=== PATIENT | male | born 1990 | race Caucasian/White ===

== ENCOUNTER → 2021-03-13 14:42 | Outpatient (BNVA) | payer SELFPAY | PROVIDERS: Family Provider Nurse Practitioner Family; PCP Nurse Practitioner Family; Visit Provider Nurse Practitioner Family | DX: R07.9 Chest pain, unspecified (principal) | CPT/HCPCS: 80053; 80061; 83735; 84443; 84484; 85025 ==

== ENCOUNTER → 2021-09-16 13:03 | Outpatient (BNVA) | payer SELFPAY | PROVIDERS: Family Provider Nurse Practitioner Family; PCP Nurse Practitioner Family; Visit Provider Nurse Practitioner Family | DX: Z11.52 Encounter for screening for COVID-19 (principal) | CPT/HCPCS: 87635 ==

== ENCOUNTER 2021-10-19 12:08 | Emergency (ER) | payer SELFPAY ==
[2021-10-19 12:16] VITALS: BP 148/86; PULSE 82; RESP 18; TEMP 36.8; O2SAT 98; BMI 28.3
--- NOTE | 2021-10-19 12:23 | W.ED.CHESTPA ---
HPI - Chest Pain General: Chief Complaint: Chest Pain Stated Complaint: Chest Pain and tightness Time Seen by Provider: 10/19/21 12:23 History of Present Illness: Mr. Kumari is a 30-year-old gentleman who presents emergency department due to chest discomfort and shortness of breath. He does endorse a history of anxiety and is not currently on medications, previously tried Lexapro though had zombie feeling and therefore stopped taking it. He was doing okay managing without medication however after developing Covid approximately 1 month ago he has had increased anxiety. He describes pressure that extends from his throat down to his chest that occurs intermittently. This is often associated with racing heart, panic feeling, and shortness of breath. He cannot think of specific situations that provoke this and it occurs randomly sometimes multiple times per day. He does have a history of tobaccoism but no other cardiac risk factors. He previously saw kitchen operator and was referred for further outpatient stress test however this has not been scheduled. Overall intensity symptoms when present is moderate to severe. Course is intermittent. He reports frequent upset stomach which she thinks may be related to anxiety as well. No other specific changes in health, exacerbating, relieving factors identified. Onset (ago): month(s) Timing of current episode: episodic Prior episodes: Yes Onset: other Pain location: other Severity: moderate Quality: tightness Relieving factors: nothing Exacerbating factors: nothing Treatment prior to arrival: other Review of Systems General: Reports: 10 or more systems reviewed and unremarkable except in HPI and below PFSH ED PFSH: Surgical History No history of previous surgery Family History Other CAD (coronary artery disease) Cancer Clotting disorder Diabetes Hypertension Stroke Denies family history of Dementia Chronic kidney disease (CKD) Social History Smoking and tobacco status: former smoker Quit status (tobacco): has quit using tobacco Year quit tobacco: quit one month ago Second hand smoke exposure: No Smoking risk assessment/counseling performed?: No Alcohol intake: current Alcohol intake frequency: holidays/special occasions only Desire information about alcohol rehabilitation?: No Counseling given: No Desire information about substance/drug rehabilitation?: No Counseling given: No Adopted: No Caregiver/support person: No Lives independently: Yes Household members: family Housing: House Marital status: Number of children: 3 service: No Current occupational status: employed Current occupation: [employer] History of recent travel: No Current gender identity: Male Physical Exam Const: COMMON NORMALS: alert GENERAL APPEARANCE: cooperative and well developed HENMT: COMMON NORMALS: normocephalic and atraumatic HEAD & SCALP: normocephalic and atraumatic Eye: COMMON NORMALS: conjunctivae normal CONJUNCTIVA: Yes conjunctivae normal SCLERA: sclerae normal Neck/C-Spine: COMMON NORMALS: supple GENERAL: Yes trachea midline Resp: COMMON NORMALS: normal respiratory effort and clear to auscultation bilaterally EFFORT & INSPECTION: Yes able to speak in complete sentences AUSCULTATION: clear to auscultation bilaterally Cardio: COMMON NORMALS: regular rate and regular rhythm RATE: regular rate RHYTHM: regular rhythm GI: COMMON NORMALS: Soft to palpation PALPATION: Yes Soft to palpation and No Tenderness to palpation present (GI) PERCUSSION: normal to percussion Extremity: GENERAL: Yes normal exam except as noted and No edema Neuro: COMMON NORMALS: moves all extremities SENSORIUM/ORIENTATION: Yes alert and No Orientation impaired Psych: COMMON NORMALS: mental status grossly normal and Normal thought process present THOUGHT PROCESS: Normal thought process present Course ED course: - Patient was seen and evaluated by me at bedside - Patient placed on cardiac monitors, IV access obtained - Initial evaluation notable for exam as above - Labs notable for minimal leukocytosis, likely mild hemoconcentration. Troponin is normal with greater than 6 hours of symptoms. - Imaging notable for no acute finding on chest x-ray. - Upon serial reexamination after treatment the patient was similar - Based on patient history, evaluation, labs, and imaging as interpreted the most likely cause of the patient's condition is multifactorial including unspecified chest pain. - The results of ED evaluation were discussed with the patient including prescriptions and/or symptomatic cares (if applicable) including appropriate and responsible use, followup plan, and return precautions. The patient verbalized understanding and felt safe for discharge. - Patient discharged in satisfactory condition. Note: Click bubbles or prepopulated osei in note writing are used for assistance with data collection and billing and are inherently more limited than narrative and other text portions of this note. Please use narrative for additional clinical history and defer to narrative/free test for any case of contradictory information. If information appears in only free text or click bubble it should be considered present or absent as reported. Please contact note publications writer for clarifications of clinical information or contradictory information. MDM is a brief summary, contradictory or erroneous seeming information should be clarified and full note should be reviewed. Vital Signs: Vital signs: Vital Signs Temperature 98.3 F 10/19/21 12:16 Pulse Rate 70 10/19/21 14:22 Respiratory Rate 17 10/19/21 14:22 Blood Pressure 133/73 10/19/21 14:22 Pulse Oximetry 96 10/19/21 14:22 MDM - Chest Pain Medical Decision Making 30-year-old gentleman presenting with shortness of breath and chest discomfort. Patient low risk by heart score and troponin negative greater than 6 hours of symptoms. Satisfactory for outpatient evaluation. Medical Records I reviewed the patient's medical records. Lab Data I reviewed the patient's lab results. : 10/19/21 12:48 10/19/21 12:48 Radiology Impressions Chest X-Ray 10/19/21 12:42 IMPRESSION: No acute findings. Laboratory Results WBC 10.3 10^3/uL (4.0-10.0) H 10/19/21 12:48 RBC 5.33 10^6/uL (4.1-5.3) H 10/19/21 12:48 Hgb 15.2 g/dL (11.7-16.6) 10/19/21 12:48 Hct 45.9 % (42.0-52.0) 10/19/21 12:48 MCV 86.1 fl (80-94) 10/19/21 12:48 MCH 28.5 pg (28.0-34.0) 10/19/21 12:48 MCHC 33.1 g/dL (30.0-36.0) 10/19/21 12:48 RDW 12.2 % (12.1-15.1) 10/19/21 12:48 Plt Count 302 10^3/cmm (130-400) 10/19/21 12:48 MPV 10.0 fL (7.4-10.4) 10/19/21 12:48 Neut % (Auto) 75.3 % 10/19/21 12:48 Lymph % (Auto) 18.0 % 10/19/21 12:48 Bowie % (Auto) 5.9 % 10/19/21 12:48 Eos % (Auto) 0.1 % 10/19/21 12:48 Baso % (Auto) 0.3 % 10/19/21 12:48 Neut # (Auto) 7.75 10^3/uL (1.8-7.7) H 10/19/21 12:48 Lymph # (Auto) 1.9 10^3/uL (0.8-4.8) 10/19/21 12:48 Bowie # (Auto) 0.6 10^3/uL (0.2-0.9) 10/19/21 12:48 Eos # (Auto) 0.0 10^3/uL (0.0-0.8) 10/19/21 12:48 Baso # (Auto) 0.0 10^3/uL (0.0-0.1) 10/19/21 12:48 Nucleated RBC % (auto) 0 % 10/19/21 12:48 Nucleated RBCs # 0.0 /100WBC 10/19/21 12:48 Sodium 138 mmol/L (136-145) 10/19/21 12:48 Potassium 4.1 mmol/L (3.5-5.1) 10/19/21 12:48 Chloride 101 mmol/L (98-107) 10/19/21 12:48 Carbon Dioxide 25 mmol/L (22-29) 10/19/21 12:48 Anion Gap 16.1 (5-19) 10/19/21 12:48 BUN 13 mg/dL (6-20) 10/19/21 12:48 Creatinine 0.8 mg/dL (0.7-1.2) 10/19/21 12:48 GFR Calculation 113.5 mL/min (90-130) 10/19/21 12:48 Glucose 122 mg/dL (65-115) H 10/19/21 12:48 Calculated Osmolality 287 mOsm/kg (285-295) 10/19/21 12:48 Calcium 9.5 mg/dL (8.5-10.5) 10/19/21 12:48 Total Bilirubin 0.5 mg/dL (0.15-1.2) 10/19/21 12:48 AST 20 U/L (0-40) 10/19/21 12:48 ALT 26 U/L (0-41) 10/19/21 12:48 Alkaline Phosphatase 89 IU/L (40-130) 10/19/21 12:48 Troponin T Gen 5 ng/L 7 ng/L (0-15) 10/19/21 12:48 Total Protein 8.2 g/dL (6.6-8.7) 10/19/21 12:48 Albumin 5.2 g/dL (3.5-5.2) 10/19/21 12:48 Globulin 3.0 g/dL (1.3-4.6) 10/19/21 12:48 EKG Data EKG 1: I personally reviewed and interpreted this EKG as follows: EKG interpretation date: 10/19/21 EKG interpretation time: 12:42 Interpretation: Twelve-lead EKG shows a regular rhythm and rate of 79. FL interval 125, QRS duration 99, QTc 397. Right axis. Interpretation: Sinus rhythm. Nonspecific ST segment abnormalities. Discharge Plan Discharge Patient Disposition: Home Clinical Impression: Chest pain, Anxiety, Shortness of breath Condition: Stable Prescriptions: No Action clonazepam [Klonopin] 0.5 mg tablet 0.5 mg PO BID 30 Days Qty: 60 0RF escitalopram oxalate [Lexapro] 10 mg tablet 10 mg PO DAILY Qty: 30 6RF esomeprazole magnesium [Nexium] 20 mg capsule,delayed release(DR/EC) 20 mg PO DAILY 90 Days Qty: 90 2RF melatonin 5 mg capsule 5 mg PO DAILY PRN (Reason: insomnia) 10 Days Qty: 10 0RF Discharge Orders: Discharge ED (Routine); Ordered 10/19/21 Ordered By: Levi Clemons Referrals: Mary Rivas MD [Primary Care Provider] - Patient Instructions: Chest Pain (ED), Panic Disorder (ED), Anxiety (ED), Shortness of Breath (ED) Activity Restrictions/Additional Instructions: Thank you for visiting the emergency department. You were seen and evaluated for chest pain and shortness of breath episodes associated with other symptoms. The exact cause of your symptoms is unclear though based on description may be related to anxiety or panic disorder. I recommend continuing with your previously advised outpatient cardiac evaluation. I will message our senior case manager for further assistance regarding scheduling these tests. Please follow-up with your primary care provider. You may also access our behavioral health clinic at : [phone] [address] If you or someone you care for is experiencing a psychiatric emergency, please call the crisis hotline ([employer]) 24-hours a day, 7 days a week at [phone]. Please return to the emergency department for anything that you are concerned about and feel needs emergency department evaluation. Coding Level of Care Code ED Director Of Physical Education for Paul Fwd Exam Comprehensive
--- NOTE | 2021-10-19 12:42 | ECG_ITS ---
[facility] Test Date: 2021-10-19 Pat Name: Bruce Kumari Department: Room: Gender: Male Aquatics Lifeguard: : 1990 Requested By: Levi Clemons Order Number: [id number] George MD: Betty Suarez M.D. Measurements Intervals [place] Rate: 79 P: -11 DC: 125 QRS: 101 QRSD: 99 T: 59 QT: 362 QTc: 416 Interpretive Statements SINUS RHYTHM RIGHT AXIS DEVIATION [QRS AXIS > 100] NONSPECIFIC T-WAVE ABNORMALITY No previous ECG available for comparison Electronically Signed On 10-20-2021 12:19:56 U.[place]. REPRESENTATIVE by Betty Suarez M.D. [id number]
--- NOTE | 2021-10-19 12:42 | XRR_ITS ---
PROCEDURE INFORMATION: Exam: XR Chest Exam date and time: 10/19/2021 12:42 PM Age: 30 years old Clinical indication: Pain; Chest pressure; Additional info: Chest pain TECHNIQUE: Imaging protocol: XR of the chest. Views: 1 view. COMPARISON: CR Abdomen Series Acute [id number] 04/13/2019 12:06 PM FINDINGS: Lungs: Unremarkable. No consolidation. Pleural spaces: Unremarkable. No pleural effusion. No pneumothorax. Heart/Mediastinum: Unremarkable. No cardiomegaly. Bones/joints: Unremarkable. XR/XR chest 1V portable [id number] IMPRESSION: No acute findings.
[2021-10-19 12:55] LABS: Basophils % 0.3 %; Eosinophils % 0.1 %; Hematocrit 45.9 % (42.0-52.0); Hemoglobin 15.2 g/dL (11.7-16.6); Lymphocytes # 1.9 10^3/uL (0.8-4.8); Mean Corpuscular HGB Conc 33.1 g/dL (30.0-36.0); Mean Corpuscular Hemoglobin 28.5 pg (28.0-34.0); Mean Corpuscular Volume 86.1 fl (80-94); Monocytes # 0.6 10^3/uL (0.2-0.9); Monocytes % 5.9 %; Neutrophils # 7.75 10^3/uL (1.8-7.7); Neutrophils % 75.3 %; Nucleated Red Blood Cells % 0 %; Platelet Count 302 10^3/cmm (130-400); Red Blood Count 5.33 10^6/uL (4.1-5.3); Red Cell Distribution Width 12.2 % (12.1-15.1); White Blood Count 10.3 10^3/uL (4.0-10.0)
[2021-10-19 13:40] LABS: Alanine Aminotransferase 26 U/L (0-41); Albumin Level 5.2 g/dL (3.5-5.2); Alkaline Phosphatase 89 IU/L (40-130); Anion Gap 16.1 (5-19); Aspartate Amino Transferase 20 U/L (0-40); Blood Urea Nitrogen 13 mg/dL (6-20); Calcium 9.5 mg/dL (8.5-10.5); Carbon Dioxide 25 mmol/L (22-29); Chloride 101 mmol/L (98-107); Glomerular Filtration Rate 113.5 mL/min (90-130); Glucose 122 mg/dL (65-115); Osmolality Calculated 287 mOsm/kg (285-295); Potassium 4.1 mmol/L (3.5-5.1); Sodium 138 mmol/L (136-145); Total Bilirubin 0.5 mg/dL (0.15-1.2); Total Protein 8.2 g/dL (6.6-8.7)
[2021-10-19 13:41] LABS: Troponin T (5th) Once 7 ng/L (0-15)
[2021-10-19 14:22] VITALS: BP 133/73; PULSE 70; RESP 17; O2SAT 96
--- NOTE | 2021-10-22 06:34 | DCPLANNER ---
Addendum entered by Brenda Norton 10/29/21 16:16: estate manager had message to check on stress test ordered by Dr. Sandoval. When I spoke with someone in centralized scheduling, counseling case manager was told that they did not have an order for this patient. estate manager then called [facility], was told that an order had been placed back in March of 2021, which that order is not any good anymore. A follow up appointment was scheduled for patient for Thursday, November 04, 2021 at 1:[address] Sandoval. estate manager called phone number [phone], spoke with patient, he stated that he is following up with his primary care physician. Patient does not want the stress test, or the follow up appointment with [facility]. estate manager will cancel the appointment with [facility]. Original Note: estate manager was asked to check on the tests ordered by Dr. Sandoval to see if they could be scheduled as soon as possible. estate manager emailed, Jef at centralized scheduling about tests being scheduled.
== END 2021-10-19 14:23 | disposition home or self-care (01) ==
PROVIDERS: Emergency Provider Emergency Medicine; PCP Family Medicine
DX: F41.9 Anxiety disorder, unspecified (principal); R07.9 Chest pain, unspecified; R06.02 Shortness of breath; Z87.891 Personal history of nicotine dependence
CPT/HCPCS: 71045; 80053; 84484; 85025; 93005; 99283

== ENCOUNTER 2021-10-23 12:04 | Emergency (ER) | payer SELFPAY ==
[2021-10-23 12:21] VITALS: BP 142/77; PULSE 74; RESP 17; TEMP 36.8; O2SAT 96; BMI 28.3
--- NOTE | 2021-10-23 12:49 | XR_ITS ---
WS: [id number] Portable AP upright chest, 10/23/2021 Clinical Data: dyspnea Comparison: Portable chest, 10/19/2021. Findings: No nodules, masses or effusions are seen. The heart is normal. The pulmonary vascularity is not increased. No pneumonia or pneumothorax is seen. XR/XR chest 1V portable [id number] Impression: Negative chest.
--- NOTE | 2021-10-23 12:49 | ECG_ITS ---
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 Measurements Intervals [place] Rate: 64 P: -11 NH: 90 QRS: 48 QRSD: 102 T: 42 QT: 393 QTc: 406 Interpretive Statements SINUS RHYTHM WITH SHORT NH INTERVAL Compared to ECG 10/19/2021 12:35:05 Short NH interval now present Right-axis deviation no longer present T-wave abnormality no longer present Electronically Signed On 10-23-2021 23:08:27 DECORATOR LIGHTING FIXTURES by Alistair Webb M.D. [id number]
--- NOTE | 2021-10-23 12:53 | ED_ITS ---
HPI - General Adult General: Chief complaint: Anxiety Stated complaint: pt states Heart rate low since last night Time Seen by Provider: 10/23/21 12:35 History of Present Illness: CC: Chest Pain HPI: This is a 30 yo patient hx of anxiety presenting to the ED complaining of acute sudden onset intermittent sharp chest pain x 2 days WITHOUT radiation to the back or shoulders . No associated with shortness of breath, chest pain or dyspnea on exertion. Pain is not tearing in nature and does not radiate to the back. Pain not associated with vomiting or PO intake. Denies any recent sympathomimetic drug use. Patient denies any cough. Denies palpitations, dysphagia, diaphoresis, radiation of pain to bilateral arms, jaw. Denies F/N/V/D. Patient denies any recent immobility, surgery, unilateral leg swelling, or prior PE. Patient denies any orthopnea. In addition, patient also reports that his heart rate has dropped to the low 50s after starting on the Prozac. Onset: 2 days ago Duration: ongoing for the last 2 days Location: home Severity: mild/moderate Associated symptoms: Reports chest pain and nausea; Deny dyspnea, rash, palpitations or vomiting Review of Systems Const: Reports: other (+insomnia); Denies: fever(s) or chills Eyes: Denies: change in vision ENMT: Denies: mouth pain Card: Reports: chest pain; Denies: palpitations Resp: Denies: dyspnea or non-productive cough GI: Reports: nausea; Denies: abdominal pain, vomiting or diarrhea : Denies: dysuria Musc: Denies: extremity pain Skin/Breast: Denies: rash or new lesions Neuro: Denies: weakness in extremities Psych: Reports: other (Normal mood) Meliton/Lymph: Denies: easy bruising PFS ED PFSH: Surgical History No history of previous surgery Family History Other CAD (coronary artery disease) Cancer Clotting disorder Diabetes Hypertension Stroke Denies family history of Dementia Chronic kidney disease (CKD) Social History Smoking and tobacco status: former smoker Quit status (tobacco): has quit using tobacco Year quit tobacco: quit one month ago Second hand smoke exposure: No Smoking risk assessment/counseling performed?: No Alcohol intake: current Alcohol intake frequency: holidays/special occasions only Desire information about alcohol rehabilitation?: No Counseling given: No Desire information about substance/drug rehabilitation?: No Counseling given: No Adopted: No Caregiver/support person: No Lives independently: Yes Household members: family Housing: House Marital status: Number of children: 3 service: No Current occupational status: employed Current occupation: DRS History of recent travel: No Current gender identity: Male Physical Exam Const: COMMON NORMALS: alert HENMT: COMMON NORMALS: atraumatic HEAD & SCALP: atraumatic MOUTH: moist mucous membranes not abnormal Eye: COMMON NORMALS: EOMs intact bilaterally and conjunctivae normal CONJUNCTIVA: Yes conjunctivae normal Neck/C-Spine: COMMON NORMALS: full ROM and supple Resp: COMMON NORMALS: normal respiratory effort and clear to auscultation bilaterally AUSCULTATION: clear to auscultation bilaterally Cardio: COMMON NORMALS: regular rate RATE: regular rate OTHER: 2+ radial pulses b/l GI: COMMON NORMALS: Soft to palpation and non-tender PALPATION: Yes Soft to palpation Extremity: COMMON NORMALS: full ROM Neuro: SENSORIUM/ORIENTATION: Yes alert MOTOR EXAM: No Abnormal motor strength present and Other motor observations present (no focal motor deficits) Psych: COMMON NORMALS: speech normal SPEECH: Yes normal speech MOOD & AFFECT: Yes euthymic mood Course Vital Signs: Vital signs: Vital Signs Temperature 98.2 F 10/23/21 12:21 Pulse Rate 74 10/23/21 12:21 Respiratory Rate 17 10/23/21 12:21 Blood Pressure 142/77 10/23/21 12:21 Pulse Oximetry 96 10/23/21 12:21 MDM - General Adult Medical Decision Making [30]yo patient w/ hx of anxiety presenting to the ED with evaluation of new onset sharp chest pain lasting for a few seconds a time since his last evaluation 2 days ago and low heart rate. HDS, pulse 2+ radially bilaterally, no signs of fluid overload, AAOx3, neuro exam intact. Given History and Exam today I have no suspicion for ACS, Pneumothorax, Pneumonia, Pulmonary Embolus, Tamponade, Aortic Dissection or other emergent problems as a cause for this presentation. Workup: ECG, CXR, CBC, BMP, Troponin Interventions: Ibuprofen 600mg PRN pain Findings: ECG: No overt evidence of STEMI, hyperacute T waves, localizable STD or T wave inversions. No evidence of Brugada?s sign, delta wave, epsilon wave, significantly prolonged QTc, or malignant arrhythmia. No Q waves. Other Labs unremarkable for emergent problems. CXR: Without PTX, PNA, or widened mediastinum Last Stress Test: never Last Heart Catheterization: never HEART Score: 0 PERC: Negative [1:55pm ] On reassessment, the patient is HDS, no complaints of persistent chest pain in the ED after evaluation. ECG is non-ischemic. Workup today is unremarkable. Doubt ACS/PE or other emergent causes of chest pain. Doubt ACS/PE or other emergent causes of chest pain. No suspicion for aortic dissection given no widened mediastinum, 2+ upper extremity pulses, or tearing pain. No suspicion for PE given no pleuritic chest pain, recent immobilization or surgery hemoptysis, or other VTE risk factors. EKG is non-ischemic. XR normal. Patient is aware of his appointment with [facility] clinic for his anxiety and will plan to follow-up. Rx: Ativan x 3 tablets PRN anxiety, zofran PRN nausea and decreased appetite, Disposition: Discharge. Strict return precautions discussed with the patient with full understanding. Advised patient to follow up promptly with a primary care provider in 24-48 hrs if the patient has persistent symptoms. Given return instructions for any crushing/tearing chest pain, focal weakness, syncope or any new or concerning issues. Lab Data Radiology Impressions Chest X-Ray 10/23/21 12:49 Impression: Negative chest. Discharge Plan Discharge Patient Disposition: Home Clinical Impression: Decrease in appetite, Chest pain, Insomnia Condition: Stable Prescriptions: New Zofran 4 mg tablet 4 mg PO TID PRN (Reason: nausea and vomiting) 4 Days Qty: 12 0RF melatonin 5 mg capsule 5 mg PO DAILY PRN (Reason: insomnia) 10 Days Qty: 10 0RF Ativan 1 mg tablet 1 mg PO DAILY PRN (Reason: anxiety) 3 Days Qty: 3 0RF No Action esomeprazole magnesium [Nexium] 20 mg capsule,delayed release(DR/EC) 20 mg PO DAILY 0RF Discharge Orders: Discharge ED (Routine); Ordered 10/23/21 Ordered By: Keyona Conn Referrals: Mary Rivas MD [Primary Care Provider] - Discharge Diet: Advance as tolerated Discharge Activity: Increase activity as tolerated Patient Instructions: Chest Pain (ED), Anxiety (ED) Activity Restrictions/Additional Instructions: Please come back to the emergency room if you need help, have any hallucinations, or you have any depression or have thoughts about hurting yourself or other people. Come back to the emergency room if your chest pain worsens, have any fever or chills, worsening shortness of breath, worsening exertional lightheadedness, or any new or concerning complaints. Coding Level of Care Code ED Automotive Service Porter for Chg Fwd Exam Comprehensive
== END 2021-10-23 14:13 | disposition home or self-care (01) ==
PROVIDERS: Emergency Provider Emergency Medicine; PCP Family Medicine
DX: R07.9 Chest pain, unspecified (principal); G47.00 Insomnia, unspecified; R63.0 Anorexia; Z87.891 Personal history of nicotine dependence
CPT/HCPCS: 71045; 93005; 99282

== ENCOUNTER → 2021-11-29 08:47 | Outpatient (BNVA) | payer SELFPAY | PROVIDERS: PCP Nurse Practitioner Family; Visit Provider Nurse Practitioner Family | DX: F41.9 Anxiety disorder, unspecified (principal); F41.0 Panic disorder [episodic paroxysmal anxiety]; F32.9 Major depressive disorder, single episode, unspecified; R73.9 Hyperglycemia, unspecified | CPT/HCPCS: 83036 ==

== ENCOUNTER → 2023-09-21 09:51 | Outpatient (BNVA) | payer BC, SELFPAY | PROVIDERS: PCP Nurse Practitioner Family; Visit Provider Nurse Practitioner Family | DX: F41.9 Anxiety disorder, unspecified (principal); F41.0 Panic disorder [episodic paroxysmal anxiety]; F32.9 Major depressive disorder, single episode, unspecified; K21.9 Gastro-esophageal reflux disease without esophagitis; Z13.220 Encounter for screening for lipoid disorders | CPT/HCPCS: 80053; 80061; 84443 ==

== ENCOUNTER → 2024-02-22 09:08 | Outpatient (BNVA) | payer BC, SELFPAY | PROVIDERS: PCP Nurse Practitioner Family; Visit Provider Nurse Practitioner Family | DX: F41.0 Panic disorder [episodic paroxysmal anxiety] (principal); K21.9 Gastro-esophageal reflux disease without esophagitis; E78.2 Mixed hyperlipidemia; F41.9 Anxiety disorder, unspecified; F32.9 Major depressive disorder, single episode, unspecified; Z76.0 Encounter for issue of repeat prescription | CPT/HCPCS: 80053; 80061; 85025 ==

== ENCOUNTER → 2024-08-08 15:32 | Outpatient (BNVA) | payer BC, SELFPAY | PROVIDERS: PCP Nurse Practitioner; Visit Provider Nurse Practitioner | DX: F41.0 Panic disorder [episodic paroxysmal anxiety] (principal); E78.2 Mixed hyperlipidemia; K21.9 Gastro-esophageal reflux disease without esophagitis; Z79.899 Other long term (current) drug therapy | CPT/HCPCS: 80053; 80061 ==

== ENCOUNTER → 2025-04-10 16:50 | Outpatient (BNVA) | payer BC, SELFPAY | PROVIDERS: PCP Nurse Practitioner; Visit Provider Nurse Practitioner | DX: E78.2 Mixed hyperlipidemia (principal) | CPT/HCPCS: 80053; 80061 ==

== ENCOUNTER → 2025-04-18 08:26 | Outpatient (BNVA) | payer BC, SELFPAY | PROVIDERS: PCP Nurse Practitioner; Visit Provider Nurse Practitioner | DX: Z11.59 Encounter for screening for other viral diseases (principal); R74.8 Abnormal levels of other serum enzymes | CPT/HCPCS: 86705; 86706; 86709; 86803; 87340 ==